=== PATIENT | male | born 1945 | race Caucasian/White ===

== ENCOUNTER → 2021-04-29 | Outpatient (CLI) | payer MEDICARE ==
[2021-04-29 08:07] LABS: African American GFR (CKD) >90 (>60 ml/min/1.73 sqM); Blood Urea Nitrogen 15 mg/dL (9-20); Non-African American GFR(CKD) 86 (>60 ml/min/1.73 sqM)
--- NOTE | 2021-04-30 16:51 | XR ---
EXAMINATION TYPE: XR IVP DATE OF EXAM: 04/29/2021 COMPARISON: None HISTORY: Hematuria TECHNIQUE: Carpet Layer view was obtained. Following intravenous administration of contrast sequential images were obtained over the kidneys ure ter and bladder. FINDINGS: On water conservation specialist view there is some bilobed area of increased density within the expected region of the urinary bladder. This measures 6.9 cm transverse by 8.9 cm craniocaudal. There are no comparison studies. Calcified bladder or previous contrast administration within the bladder could be considere d. Following the intravenous administration of contrast there is prompt uptake and excretion of the cont rast in the bilateral kidneys. Renal calyces infundibula and renal pelves are normal. Ureters follow a normal caliber course and contour to the urinary bladder. Urinary bladder is within the midportion of this area of increased density within the pelvis. Some mi ld impression on the inferior portion of the bladder may be from the prostate. Obvious filling defect is not identified. Appears be a normal post void residual. IMPRESSION: 1. Minimal impression along the inferior portion of the urinary bladder. 2. Area of increased density in the expected region of the urinary bladder. Calcified bladder wall or additional structure within the pelvis may be present. Recommend CT pelvis for additional evaluation of this structure.
== END | disposition home or self-care (01) ==
LOC: RADFLMAIN 07:09
PROVIDERS: ATTEND Urology
DX: R31.9 Hematuria, unspecified (principal)
CPT/HCPCS: 82565; 84520; 74400; Q9967

== ENCOUNTER 2023-12-19 19:01 | Emergency (ER) | payer MEDICARE ==
[2023-12-19 19:30] VITALS: BP 111/66; PULSE 65; RESP 18; TEMP 98.2
== END 2023-12-20 07:47 | disposition home or self-care (01) ==
LOC: EC 19:01
DX: Z53.9 Procedure and treatment not carried out, unspecified reason (principal)

== ENCOUNTER 2023-12-19 19:03 | Emergency (ER) | payer MEDICARE ==
[2023-12-19 19:30] VITALS: BP 111/66; PULSE 65; RESP 18; TEMP 98.2
--- NOTE | 2023-12-19 19:52 | ED ---
General Adult HPI - General Chief complaint: Fall Stated complaint: Fall Time Seen by Provider: 12/19/23 19:23 Source: patient, family, EMS, RN notes reviewed, old records reviewed Mode of arrival: EMS Limitations: altered mental status - History of Present Illness Initial comments: This is a 78-year-old male who presents to the emergency department after having fallen. Patient has a history of Parkinson's. Patient just was released from [facility] for altered mental status and they were sending him to a senior living for rehabilitation. got to the senior living and he stepped out of the car he fell forward and hit his head. states he did not lose consciousness he was not dazed to get up and was ambulatory at the scene but he does have an abrasion on his forehead and states that he is on Eliquis. Patient himself has no complaints of any extremity pain back pain or chest pain. - Related Data Allergies Allergy/AdvReac Type Severity Reaction Status Date / Time No Known Allergies Allergy Verified 12/19/23 19:18 Review of Systems ROS Statement: Those systems with pertinent positive or pertinent negative responses have been documented in the HPI. ROS Other: All systems not noted in ROS Statement are negative. Past Medical History Past Medical History: Dementia, Hyperlipidemia, Hypertension Additional Past Medical History / Comment(s): parkinsons, DM History of Any Multi-Drug Resistant Organisms: None Reported Additional Past Surgical History / Comment(s): bilateral knee replacements Past Psychological History: No Psychological Hx Reported Smoking Status: Never smoker Past Alcohol Use History: None Reported Past Drug Use History: None Reported General Exam - General Exam Comments Initial Comments: GENERAL: Patient is well-developed and well-nourished. Patient is nontoxic and well- hydrated and is in no acute distress. ENT: Neck is soft and supple. No significant lymphadenopathy is noted. Oropharynx is clear. Moist mucous membranes. Neck is full range of motion EYES: The sclera were anicteric and conjunctiva were pink and moist. Extraocular movements were intact and pupils were equal round and reactive to light. Eyelids were unremarkable. PULMONARY: Unlabored respirations. Good breath sounds bilaterally. No audible rales rhonchi or wheezing was noted. CARDIOVASCULAR: There is a regular rate and rhythm without any murmurs gallops or rubs. ABDOMEN: Soft and nontender with normal bowel sounds. SKIN: Patient has an abrasion in the center of his forehead measures about 2 cm x 4 cm. Patient also has an abrasion on his nose. NEUROLOGIC: Patient is alert and oriented x 2. Which per the this is baseline cranial nerves II through XII are grossly intact. Motor and sensory are also intact. Normal speech, volume and content. Symmetrical smile. MUSCULOSKELETAL: Normal extremities with adequate strength and full range of motion. LYMPHATICS: No significant lymphadenopathy is noted PSYCHIATRIC: Normal psychiatric evaluation. Limitations: altered mental status Course Vital Signs 12/19/23 19:20 Temperature 98.2 F Pulse Rate 65 Respiratory 18 Rate Blood Pressure 111/66 O2 Sat by Pulse 94 L Oximetry Medical Decision Making - Medical Decision Making Was pt. sent in by a medical professional or institution (, PA, AUTOMATIC SILK SCREEN PRINTER, urgent care, hospital, or senior living...) When possible be specific @ -No Did you speak to anyone other than the patient for history (EMS, parent, family, police, friend...)? What history was obtained from this source @ - gave all of the history Did you review nursing and triage notes (agree or disagree)? Why? @ -I reviewed and agree with nursing and triage notes Were old charts reviewed (outside hosp., previous admission, EMS record, old EKG, old radiological studies, urgent care reports/EKG's, senior living records)? Report findings @ -No old charts were reviewed Differential Diagnosis (chest pain, altered mental status, abdominal pain women, abdominal pain men, vaginal bleeding, weakness, fever, dyspnea, syncope, headache, dizziness, GI bleed, back pain, seizure, CVA, palpatations, mental health, musculoskeletal)? @ -Skull fracture, cervical spine fracture, subdural, epidural, subarachnoid, intraparenchymal hemorrhage, this is not an all-inclusive list EKG interpreted by me (3pts min.). @ -As above X-rays interpreted by me (1pt min.). @ -None done CT interpreted by me (1pt min.). @ -CT of the brain and C-spine showed no acute abnormality. U/S interpreted by me (1pt. min.). @ -None done What testing was considered but not performed or refused? (CT, X-rays, U/S, labs)? Why? @ -None What meds were considered but not given or refused? Why? @ -None Did you discuss the management of the patient with other professionals (professionals i.e. , PA, AUTOMATIC SILK SCREEN PRINTER, lab, RT, psych nurse, social work coordinator, percussion teacher, teacher, disciplinary hearing officer, ed case manager)? Give summary @ -No Was smoking cessation discussed for >3mins.? @ -No Was critical care preformed (if so, how long)? @ -No Were there social determinants of health that impacted care today? How? (Homelessness, low income, unemployed, alcoholism, drug addiction, transportation, low edu. Level, literacy, decrease access to med. care, retirement, rehab)? @ -No Was there de-escalation of care discussed even if they declined (Discuss DNR or withdrawal of care, Hospice)? DNR status @ -No What co-morbidities impacted this encounter? (DM, HTN, Smoking, COPD, CAD, Cancer, CVA, ARF, Chemo, Hep., AIDS, mental health diagnosis, sleep apnea, morbid obesity)? @ -None Was patient admitted / discharged? Hospital course, mention meds given and r oute, prescriptions, significant lab abnormalities, going to OR and other pertinent info. @ -Patient C-spine showed no acute abnormality CT of the brain showed no acute abnormality. Patient was at his baseline per the and patient will be discharged home with the to go to the senior living immediately Undiagnosed new problem with uncertain prognosis? @ -No Drug Therapy requiring intensive monitoring for toxicity (Heparin, Nitro, Insulin, Cardizem)? @ -No Were any procedures done? @ -No Diagnosis/symptom? @ -Abrasion forehead Acute, or Chronic, or Acute on Chronic? @ -Acute Uncomplicated (without systemic symptoms) or Complicated (systemic symptoms)? @ -Complicated Side effects of treatment? @ -No Exacerbation, Progression, or Severe Exacerbation? @ -No Poses a threat to life or bodily function? How? (Chest pain, [place], [place], pneumonia, PE, COPD, DKA, ARF, appy, cholecystitis, CVA, Diverticulitis, Homicidal, Suicidal, threat to staff... and all critical care pts) @ -No Diagnosis/symptom? @ -Head injury Acute, or Chronic, or Acute on Chronic? @ -Acute Uncomplicated (without systemic symptoms) or Complicated (systemic symptoms)? @ -Complicated Side effects of treatment? @ -None Exacerbation, Progression, or Severe Exacerbation] @ -No Poses a threat to life or bodily function? @ -No Disposition Clinical Impression: Fall, Head injury, Abrasion Disposition: HOME SELF-CARE Condition: Good Instructions (If sedation given, give patient instructions): Fall Prevention for Older Adults (ED), Head Injury (ED) Is patient prescribed a controlled substance at d/c from ED?: No Referrals: Brittnee Webb MD [Primary Care Provider] - 1-2 days Time of Disposition: 20:40
--- NOTE | 2023-12-19 20:37 | CT ---
EXAMINATION TYPE: CT brain cspine wo con DATE OF EXAM: 12/19/2023 COMPARISON: NONE HISTORY: fall, lac to face CT DLP: 1565 mGycm. Automated Exposure Control for Dose Reduction was Utilized. TECHNIQUE: CT scan of the head and cervical spine are performed without contrast. FINDINGS: There is no acute intracranial hemorrhage, mass effect, or midline shift. There is no defin ite acute attenuation defect. The ventricles and sulci are unremarkable. There is partial fluid opaci fication of the right maxillary sinus. Otherwise, the paranasal sinuses, middle ear cavities, and mas toid sinus air cells are clear. Orbits are intact. Cervical spine is visualized in its entirety from C1 through upper thoracic levels and demonstrates s atisfactory alignment without evidence of acute fracture or dislocation. Prevertebral soft tissue ap pears within normal limits. Advanced multilevel cervical spondylosis changes noted. The C1-C2 articul ation is unremarkable. IMPRESSION: 1. There is no acute fracture or dislocation evident in the cervical spine. 2. No acute intracranial hemorrhage, mass effect, or midline shift is seen.
[2023-12-19] MEDS: DIPH,PERTUS(ACELL)TETVAC-LF 0.5 ML VIAL IM ONE (20:55)
== END 2023-12-19 21:21 | disposition home or self-care (01) ==
LOC: EC 19:03
DX: S00.31XA Abrasion of nose, initial encounter (principal); I10 Essential (primary) hypertension; Z23 Encounter for immunization; W18.09XA Striking against other object with subsequent fall, initial encounter
CPT/HCPCS: 70450; 72125; 90471; 90715; 99284